=== PATIENT | female | born 1930 | race Caucasian/White ===

== ENCOUNTER 2017-09-03 11:17 | Outpatient (CLI) | payer OTHER | END 2017-09-03 12:00 | disposition home or self-care (01) | LOC: NUCLEAR 11:17 | DX: M81.0 Age-related osteoporosis without current pathological fracture (principal) ==

== ENCOUNTER 2018-06-05 05:41 | Day surgery (SDC) | payer OTHER ==
[~2018-06-05 05:41] MED LIST: ASPIR 8181 MG PO; COZAAR25 MG PO; MAGNESIUM250 M1 PO; METROPOLOL PO; PLAVIX75 MG PO; VIT C-ROSE HIP500 MG PO; ZOCOR5 MG PO
== END 2018-06-05 15:10 | disposition home or self-care (01) ==
LOC: CIR.AMB 05:41
DX: C34.12 Malignant neoplasm of upper lobe, left bronchus or lung (principal)
CPT/HCPCS: 36561; C1751

== ENCOUNTER 2018-06-27 14:14 | Inpatient (IN) | payer OTHER ==
[~2018-06-27] VITALS: Ht 243.8 cm; Wt 5.0 kg
--- NOTE | 2018-06-27 14:26 | NUR ---
SE RECIBE PTE ALERTA Y ORIENTADA EN TIEMPO, LUGAR Y PERSONA EN AMBULANCIA QUIEN REFIERE NAUSEAS DESDE HOY AL RECIBIR TRATAMIENTO DE QUIMIOTERAPIA. SE FREDERIC S/V LOS CUALES SE PRESENTAN A DRA. BURGESS Y SE UBICA PTE EN AREA DE OBSERVACION RODRIGUEZ 13.
--- NOTE | 2018-06-27 16:11 | NUR ---
SE ORIENTA A PACIENTE Y FAMILIAR SOBRE ORDENES MEDICAS. SE COLOCA IV FLUID, CANALIZA PACIENTE Y COLECTAN MUESTRAS DE LABORATORIO ORDENADAS BAJO MEDIDAS ASEPTICAS. PENDIENTE A RESULTADOS DE LABORATORIO PARA RE-EVALUACION MEDICA.
--- NOTE | 2018-06-27 20:55 | NUR ---
PACIENTE PRESENTA CONVULSION. SE NOTIFICA INMEDIATAMENTE A DR PETTY QUIEN EVALUA PACIENTE Y ORDENA ATIVAN (EV EMAR). SE COLOCA A PACIENTE EN MONITOR CARDIACO Y OXIMETRIA. SE EJECUTAN ORDENES MEDICAS Y SE ORIENTA A FAMILIARES SOBRE INTERVENCIONES. SE MANTIENE BAJO OBSERVACION POR CAMBIOS EN CONDICION. SIGNOS VITALES MEDIDOS Y DOCUMENTADOS.
--- NOTE | 2018-06-28 00:18 | NUR ---
PACIENTE ALERTA EN COMPANIA DE FAMILIAR EN CAMA EN COMPANIA DE FAMILIAR. SE OBSERVA A PACIENTE CONECTADA A MONITOR CARDIACO HR 118LAT/MIN, OXIMETRIA DE PULSO Y ASISTIDA RESPIRATORIAMENTE POR CANULA NASAL A 3 LTS. PACIENTE SE OBSERVA CON BUEN PATRON RESPIRATORIO. SE OBSERVA IVF'S PATENTE GISELLE DE EDEMA Y ENROJECIMIENTO BAJANDO UN .9NSS @ 125ML/HR. PENDIENTE U/C Y U/A Y CONSULTA CON DR. Ta RANGEL. SE MANTIENE BAJO OBSERVACION POR CAMBIOS.
--- NOTE | 2018-06-28 02:54 | NUR ---
PACIENTE SE OBSERVA CON HEMATOMA EN AMBOS BRAZOS, HONGOS DEBAJO DE LOS SENOS Y AREAS DE PRESION EN EL AREA SACRAL. PACIENTE CON EDEMA EN AMBAS PIERNAS. SE INICIA CATETERIZACION CON MEDIDAS ASEPTICAS Y ESTERILES Y SE FREDERIC MUESTRAS DE U/A Y U/C. SE ENVIA A LABORATORIO.
--- NOTE | 2018-06-28 08:30 | NUR ---
SE RECIBE PTE DEL TURNO ANTERIOR,PTE FEMENINA DE 88 YRS,PTE ALERTA X 3, EN CAMA CON BARANDAS ELEVADAS POR RIVER SEGURIDAD,IVF'S PATENTES Y GISELLE DE EDEMA Y/O ERITEMA EN AREA DE VENOPUNCION.IVF'S PATENTES Y GISELLE DE EDEMA Y/O ERITEMA EN AREA DE VENOPUNCION, S/V TOMADOS Y PASADOS A GRAFICAS, PTE EN ESPERA DE CONSULTA DE MEDICINA INTERNA. SE OBSERVARAN POR CAMBIOS EN RIVER CONDICION DE CHANG.
--- NOTE | 2018-06-28 09:20 | NUR ---
SE LE OFRECE TERAPIA DE MEDICAMENTOS.
== END 2018-06-30 17:46 | disposition expired | DRG 808 ==
LOC: ER 14:14 → ICU-2 06-28 10:21
PROVIDERS: ADMIT Internal Medicine Geriatric Medicine
PROC: B020ZZZ Computerized Tomography (CT Scan) of Brain (ICD-10-PCS; principal; 2018-06-27)
PROC: 02HV33Z Insertion of Infusion Device into Superior Vena Cava, Percutaneous Approach (ICD-10-PCS; 2018-06-28)
PROC: 8E0ZXY6 Isolation (ICD-10-PCS; 2018-06-28)
PROC: 0T9B70Z Drainage of Bladder with Drainage Device, Via Natural or Artificial Opening (ICD-10-PCS; 2018-06-28)
PROC: B246ZZZ Ultrasonography of Right and Left Heart (ICD-10-PCS; 2018-06-29)
PROC: 30233N1 Transfusion of Nonautologous Red Blood Cells into Peripheral Vein, Percutaneous Approach (ICD-10-PCS; 2018-06-29)
PROC: 30233R1 Transfusion of Nonautologous Platelets into Peripheral Vein, Percutaneous Approach (ICD-10-PCS; 2018-06-30)
DX: D70.1 Agranulocytosis secondary to cancer chemotherapy (principal); T81.12XA Postprocedural septic shock, initial encounter; C34.82 Malignant neoplasm of overlapping sites of left bronchus and lung; E87.1 Hypo-osmolality and hyponatremia; C79.51 Secondary malignant neoplasm of bone; K52.1 Toxic gastroenteritis and colitis; T81.44XA Sepsis following a procedure, initial encounter; I48.1 Persistent atrial fibrillation; N39.0 Urinary tract infection, site not specified; D64.81 Anemia due to antineoplastic chemotherapy; Z87.891 Personal history of nicotine dependence; E86.0 Dehydration; R56.9 Unspecified convulsions; Z74.01 Bed confinement status; R50.81 Fever presenting with conditions classified elsewhere; Z45.2 Encounter for adjustment and management of vascular access device; T45.1X5A Adverse effect of antineoplastic and immunosuppressive drugs, initial encounter; J68.4 Chronic respiratory conditions due to chemicals, gases, fumes and vapors; R14.3 Flatulence; Z79.01 Long term (current) use of anticoagulants; D69.59 Other secondary thrombocytopenia; Z66 Do not resuscitate; B95.2 Enterococcus as the cause of diseases classified elsewhere; B95.61 Methicillin susceptible Staphylococcus aureus infection as the cause of diseases classified elsewhere